=== PATIENT | female | born 1985 | race African-American/Black ===

== ENCOUNTER 2020-01-23 08:00 | Outpatient (CLI) | payer MEDICAID ==
[2020-01-24 13:31] LABS: GLUCOSE, URINE (UA) NEGATIVE (NEGATIVE); KETONES,URINE (UA) >=80 mg/dL (NEGATIVE); LEUKOCYTE ESTERASE, URINE NEGATIVE (NEGATIVE); NITRITE,URINE NEGATIVE (NEGATIVE); OCCULT BLOOD,URINE NEGATIVE (NEGATIVE); PROTEIN,URINE TRACE mg/dL (NEGATIVE); UROBILINOGEN,URINE >=8.0 E.U./dL (NORMAL)
[2020-01-24 13:49] LABS: AMORPHOUS SEDIMENT,UR Moderate /LPF; BACTERIA,URINE Few /HPF (None Seen); BILIRUBIN,URINE NEGATIVE (NEGATIVE); CLARITY,URINE CLEAR (CLEAR); ICTOTEST,URINE NEGATIVE; MUCUS,URINE Few Strands; RBC,URINE None Seen /HPF (0-5); SQUAMOUS EPITHELIAL CELL,UR NONE SEEN (<= Few)
== END 2020-01-23 23:59 | disposition home or self-care (01) ==
LOC: LAB.WCP 08:00
PROVIDERS: ATTEND Nurse Practitioner Obstetrics & Gynecology
DX: Z32.01 Encounter for pregnancy test, result positive (principal)
CPT/HCPCS: 81001; 87086

== ENCOUNTER 2020-01-31 14:56 | Outpatient (CLI) | payer MEDICAID ==
--- NOTE | 2020-01-31 17:04 | Ultrasound Report ---
PROCEDURE: OB First Trimester w/TV INDICATIONS: POSITIVE TEST OUTSIDE/PRIOR DATING DATA: Last menstrual period (LMP): 11/18/2019. LMP-based estimated date of delivery (LUISA): 08/24/2020. First dating scan (date and location): 01/31/2020. Estimated date of delivery (LUISA) from first dating scan: 08/23/2020. TECHNIQUE: Real-time scanning was performed of the fetus and maternal pelvic organs, with image documentation. Endovaginal scanning was also performed to better visualize the fetus and maternal ovaries. COMPARISON: None. FINDINGS: Embryo: There is a single living intrauterine gestation with an estimated sonographic gestational ag e of approximately 10 weeks and 5 days based off crown-rump length measurement of 3.9 cm. By mean ges tational sac diameter of 4.7 cm, fetus measures approximately 10 weeks and 2 days. cardiac acti vity measured at 150 bpm. Small para gestational hemorrhage visualized, measuring 1.6 x 1.1 x 1.8 cm. Normal yolk sac is seen. Measurement variability in dating: +/- 4 weeks by LMP, +/- 7 days by mean sac diameter (use before 6 weeks gestation if crown-rump length not able to be measured), +/- 5 days by crown-rump length (6-12 weeks gestation). Maternal organs: Ovaries appear normal bilaterally. Incidental right simple ovarian cyst. Maternal c ervix appears visibly normal and is closed. Limited images through the kidneys demonstrate no hydron ephrosis. IMPRESSION: Single living intrauterine gestation with an estimated sonographic gestational age of approximately 1 0 weeks and 5 days based off crown-rump length measurement. Estimated date of delivery is approximate ly 08/23/2020 Clinical follow-up recommended and routine second trimester anatomic screening survey. Reviewed by: Franck Underwood MD on 01/31/2020 5:03 PM PST Approved by: Franck Underwood MD on 01/31/2020 5:03 PM PST Station ID: [id number]
== END 2020-01-31 14:57 | disposition home or self-care (01) ==
LOC: DI 14:56
PROVIDERS: ATTEND Nurse Practitioner Obstetrics & Gynecology
DX: Z32.01 Encounter for pregnancy test, result positive (principal)
CPT/HCPCS: 76801; 76817

== ENCOUNTER 2020-02-19 08:00 | Outpatient (CLI) | payer MEDICAID ==
[2020-02-19 12:59] LABS: BASOPHILS % (AUTO) 0.5 %; EOSINOPHILS # (AUTO) 0.1 10^3/uL (0.0-0.7); EOSINOPHILS % (AUTO) 0.9 %; HGB - HEMOGLOBIN 12.2 g/dL (12.0-16.0); LYMPHOCYTES # (AUTO) 1.9 10^3/uL (1.5-3.5); MEAN CORPUSCULAR HEMOGLOBIN 30.5 pg (27.0-31.0); MEAN CORPUSCULAR HGB CONC 34.8 g/dL (32.0-36.0); MEAN CORPUSCULAR VOLUME 87.8 fL (81.0-99.0); MEAN PLATELET VOLUME 9.6 fL (7.9-10.8); MONOCYTES # (AUTO) 0.5 10^3/uL (0.0-1.0); MONOCYTES % (AUTO) 6.2 %; NEUTROPHILS # (AUTO) 5.2 10^3/uL (1.5-6.6); PLT - PLATELET COUNT 340 10^3/uL (130-450); RED CELL DISTRIBUTION WIDTH 11.8 % (12.0-15.0); WHITE BLOOD COUNT 7.8 x10^3/uL (4.8-10.8)
[2020-02-19 13:46] LABS: % IRON SATURATION 24 % (20-50); IRON 81 ug/dL (28-170); TOTAL IRON BINDING CAPACITY 332 ug/dL (250-450); TRANSFERRIN 237 mg/dL (192-382)
[2020-02-20 12:37] LABS: HEPATITIS B SURFACE ANTIGEN NON-REACTIVE (NON-REACTIVE); HEPATITIS C ANTIBODY NON-REACTIVE (NON-REACTIVE)
[2020-02-20 12:58] LABS: HIV AG/AB 4TH GEN NON-REACTIVE (NON-REACTIVE)
== END 2020-02-19 23:59 ==
LOC: LAB.WCP 08:00
PROVIDERS: ATTEND Nurse Practitioner Obstetrics & Gynecology
DX: Z32.01 Encounter for pregnancy test, result positive (principal)
CPT/HCPCS: 36415; 81599; 82728; 83540; 84466; 85025; 86592; 86762; 86787; 86803; 86850; 86900; 86901; 87340; 87389